=== PATIENT | female | born 1950 | race Caucasian/White ===

== ENCOUNTER → 2016-08-03 | Outpatient (CLI) | payer MEDICARE | LOC: LAB 12:33 | DX: J30.9 Allergic rhinitis, unspecified (principal); J45.991 Cough variant asthma | CPT/HCPCS: 36415; 82785 ==

== ENCOUNTER → 2020-12-18 | Outpatient (CLI) | payer MEDICARE | LOC: EMI 15:03 | DX: M54.6 Pain in thoracic spine (principal); G89.29 Other chronic pain; M51.34 Other intervertebral disc degeneration, thoracic region; M51.84 Other intervertebral disc disorders, thoracic region | CPT/HCPCS: 72146 ==